=== PATIENT | male | born 1940 | race Caucasian/White ===

== ENCOUNTER 2023-06-30 08:57 | Emergency (ER) | payer MEDICARE, BC ==
[2023-06-30] MEDS ORDERED: Diphtheria,Pertussis(Acell),Tetanus Vaccine 0.5 ML Syringe IM ONE (10:38)
[2023-06-30] MEDS ORDERED: Cephalexin 500 MG Cap ONE (10:50)
[2023-06-30] MEDS ORDERED: Lidocaine 1% 30 ML SDV INJECT SCH (11:00)
== END 2023-06-30 11:00 | disposition home or self-care (01) ==
LOC: LB.ED 08:57
DX: S61.215A Laceration without foreign body of left ring finger without damage to nail, initial encounter (principal); Z23 Encounter for immunization; Z88.0 Allergy status to penicillin; W22.8XXA Striking against or struck by other objects, initial encounter
CPT/HCPCS: 12001; 90471; 90715; 99282-25; A9270-GY

== ENCOUNTER 2025-03-16 11:47 | Emergency (ER) | payer MEDICARE | END 2025-03-16 12:33 | disposition home or self-care (01) | LOC: LB.ED 11:47 | DX: S70.311A Abrasion, right thigh, initial encounter (principal); L98.9 Disorder of the skin and subcutaneous tissue, unspecified; I10 Essential (primary) hypertension; Z88.0 Allergy status to penicillin; Z79.899 Other long term (current) drug therapy; X58.XXXA Exposure to other specified factors, initial encounter | CPT/HCPCS: 99283 ==

== ENCOUNTER 2025-03-29 11:41 | Emergency (ER) | payer MEDICARE ==
[2025-03-29 12:49] LABS: HEMATOCRIT 37.3 % (40.0-54.0); HEMOGLOBIN 12.9 g/dL (13.0-18.0); MEAN CORPUSCULAR HEMOGLOBIN 38.6 pg (27.0-32.0); MEAN CORPUSCULAR HGB CONC 34.6 g/dL (31.0-35.0); MEAN CORPUSCULAR VOLUME 112 fL (76-96); MEAN PLATELET VOLUME 9.7 fL (6.0-10.0); PLATELET COUNT,PLT 276 K/uL (150-400); RED BLOOD CELL COUNT 3.34 M/uL (4.50-6.50); RED CELL DISTRIBUTION WIDTH 14.8 % (11.0-16.0)
[2025-03-29 13:03] LABS: WHITE BLOOD CELL COUNT,WBC 30.8 K/uL (4.0-11.0)
[2025-03-29 13:06] LABS: ANION GAP 9.7 mmol/L (5.0-15.0); BUN/CREATININE RATIO 12.5 (6-25); CALCIUM 9.5 mg/dL (8.5-10.1); CARBON DIOXIDE,CO2 31.4 mmol/L (21.0-32.0); CREATININE 1.2 mg/dL (0.70-1.30); EST CRCL DRUG DOSING (CG) 39.14 mL/min; POTASSIUM,K 4.1 mmol/L (3.5-5.1)
[2025-03-29 13:17] LABS: ELLIPTOCYTES FEW
[2025-03-29] MEDS: cefTRIAXone 1 GM Vial IM ONE (13:17)
[2025-03-29 13:18] LABS: PLATELET COUNT ESTIMATE ADEQUATE
[2025-03-29 14:22] LABS: SEDIMENTATION RATE MANUAL 19 mm/hr (0-20)
== END 2025-03-29 13:36 | disposition home or self-care (01) ==
LOC: LB.ED 11:41
DX: L03.313 Cellulitis of chest wall (principal); I10 Essential (primary) hypertension; Z88.0 Allergy status to penicillin; Z79.899 Other long term (current) drug therapy
CPT/HCPCS: 36415; 80048; 85025; 85651; 96372; 99283; J0696